=== PATIENT | female | born 2005 | race Caucasian/White ===

== ENCOUNTER 2024-03-05 06:43 | Outpatient (REF) | payer BC, SELFPAY ==
--- NOTE | ~2024-03-05 | US_ITS ---
EXAMINATION: US PELVIS CLINICAL INFORMATION: Amenorrhea COMPARISON: None available. TECHNIQUE: Ultrasound of the pelvis is performed using both transabdominal and transvaginal transducers along with Doppler. Transvaginal imaging is performed due to inadequate visualization transabdominally. FINDINGS: Uterus: The uterus is anteverted and measures 6.1 x 2.4 x 3.2 cm. The double wall endometrial thickness is 5 mm. In the distal endometrial canal/proximal cervical segment, 0.5 x 0.3 x 0.3 cm avascular fluid collection versus mildly complicated cyst is seen. Adnexa: Both ovaries are visualized. There is normal color flow to the adnexa. There is no ovarian torsion. There is no pelvic ascites or fluid collection. Right ovary measures 2.7 x 1.6 x 2.5 cm. Volume is 5.6 mL Left ovary measures 3.1 x 1.6 x 1.9 cm. Volume 4.9 mm US/US pelvic and transvaginal IMPRESSION: 5 mm distal endometrial fluid collection versus mildly complicated cyst. If positive test, gestational sac or pseudogestational sac not excluded. Correlate with history and laboratory analysis. Follow-up as clinically indicated. Unremarkable ovaries. Electronically signed by: Cally Kim MD 03/05/2024 01:40 PM EDT
== END 2024-03-05 06:44 | disposition home or self-care (01) ==
LOC: HO.UMASIMG 06:43
PROVIDERS: Visit Provider Nurse Practitioner Women's Health
DX: N91.2 Amenorrhea, unspecified (principal)
CPT/HCPCS: 76830; 76856

== ENCOUNTER 2024-03-19 08:38 | Outpatient (REF) | payer BC, SELFPAY ==
--- NOTE | ~2024-03-19 | US_ITS ---
EXAMINATION: US PELVIS CLINICAL INFORMATION: FOLLOW UP ENDO CYST V. FLUID. LMP 03/09/24 COMPARISON: Pelvic ultrasound 03/05/2024 TECHNIQUE: Ultrasound of the pelvis is performed using both transabdominal and transvaginal transducers along with Doppler. Transvaginal imaging is performed due to inadequate visualization transabdominally. FINDINGS: UTERUS: Anteverted. Normal size and contour, measuring 6.6 x 2.3 x 3.7 cm (cervix to fundus x AP x transverse). Uniform, homogeneous endometrium measures 0.2 cm in width. In the distal endometrial canal there is an avascular mildly complex cyst is again seen measuring 0.6 x 0.2 x 0.5 cm, previously 0.6 x 0.3 x 0.3 cm. RIGHT OVARY: Normal size and echogenicity measuring 2.5 x 1.8 x 2.4 cm, volume 5.5 mL. Previously 2.7 x 1.6 x 2.5 cm. LEFT OVARY: Normal size and echogenicity measuring 2.9 x 2 x 2 cm, volume 6 mL. Previously 3.1 x 1.6 x 1.9 cm. Arterial and venous waveforms are identified in both ovaries on spectral Doppler assessment. FREE FLUID: Small volume pelvic free fluid. US/US pelvic and transvaginal IMPRESSION: Stable 0.6 cm mildly complex cyst in the distal endometrial canal. This finding is nonspecific and could represent a range of cystic etiologies such as hyperplasia or endometriosis. If clinically warranted, consider follow-up pelvic ultrasound in 6-12 months. Electronically signed by: Jayla Calderon DO 03/19/2024 05:22 PM [facility]
== END 2024-03-19 08:39 | disposition home or self-care (01) ==
LOC: HO.UMASIMG 08:38
PROVIDERS: Visit Provider Nurse Practitioner Women's Health
DX: N91.2 Amenorrhea, unspecified (principal)
CPT/HCPCS: 76830; 76856